=== PATIENT | female | born 1995 | race Two or more races ===

== ENCOUNTER → 2018-02-24 00:35 | Emergency (ER) | payer OTHER ==
[~2018-02-24 00:35] MED LIST: Acetaminophen TAB* 325 MG PO ONE; Lidocaine 2% VISCOUS* 15 ML UDC PO ONE; Omeprazole CAP* 20 MG PO ONE; Pantoprazole TAB (NF) 40 MG TAB PO ONE
--- NOTE | 2018-02-24 01:20 | ED ---
Throat Pain/Nasal Congestion - HPI Summary HPI Summary: Patient complains of sensation of something stuck in her throat, occasional difficulty tolerating saliva when she lies down 2 days. Patient seen at urgent care 2 days ago was told she might have esophageal spasms. Point with GI in 1 month. Has been eating soft foods for the past 2 days with no relief. Denies fever, cough, sore throat, CP, SOB, N/V/D, abdominal pain, change in urine or BM, GA. Medical history is none. Abdominal/pelvic surgical history is none - History of Current Complaint Chief Complaint: EDThroatPain Time Seen by Provider: 02/24/18 00:59 Hx Obtained From: Patient Onset/Duration: Gradual Onset Severity: Mild Associated Signs And Symptoms: Positive: FB Sensation Cough: None - Epiglottits Risk Factors Epiglottis Risk Factors: Negative - Allergies/Home Medications Allergies/Adverse Reactions: Allergies Allergy/AdvReac Type Severity Reaction Status Date / Time No Known Allergies Allergy Verified 02/24/18 00:42 PMH/Surg Hx/FS Hx/Imm Hx Endocrine/Hematology History: Denies: Hx Anticoagulant Therapy Cardiovascular History: Denies: Hx Cardiac Arrest History: Denies: Hx Dialysis Neurological History: Denies: Hx CVA Infectious Disease History: No Infectious Disease History: Denies: Traveled Outside the [place] in Last 30 Days - Social History Occupation: Student Alcohol Use: None Hx Substance Use: No Hx Tobacco Use: No Review of Systems Constitutional: Negative Eyes: Negative Positive: Other Cardiovascular: Negative Respiratory: Negative Gastrointestinal: Negative Genitourinary: Negative Musculoskeletal: Negative Skin: Negative Neurological: Negative Psychological: Normal All Other Systems Reviewed And Are Negative: Yes Physical Exam - Summary Physical Exam Summary: Speaking in full sentences. No work of breathing. No oral swelling. Tolerating oral fluids. Triage Information Reviewed: Yes Vital Signs On Initial Exam: Initial Vitals Temp Pulse Resp BP Pulse Ox 98.0 F 82 18 145/78 99 02/24/18 00:39 02/24/18 00:39 02/24/18 00:39 02/24/18 00:39 02/24/18 00:39 Vital Signs Reviewed: Yes Appearance: Positive: Well-Appearing Skin: Positive: Warm Head/Face: Positive: Normal Head/Face Inspection Eyes: Positive: Normal ENT: Positive: Normal ENT inspection Neck: Positive: Supple Respiratory/Lung Sounds: Positive: Clear to Auscultation Cardiovascular: Positive: Normal Abdomen Description: Positive: Nontender Musculoskeletal: Positive: Normal Neurological: Positive: Normal Psychiatric: Positive: Normal AVPU Assessment: Alert - Franci Coma Scale Best Eye Response: 4 - Spontaneous Best Motor Response: 6 - Obeys Commands Best Verbal Response: 5 - Oriented Coma Scale Total: 15 Diagnostics - Vital Signs Vital Signs Temp Pulse Resp BP Pulse Ox 02/24/18 00:39 98.0 F 82 18 145/78 99 - Laboratory Lab Statement: Any lab studies that have been ordered have been reviewed, and results considered in the medical decision making process. EENT Course/Dx - Course Course Of Treatment: Patient complains of sensation of something stuck in her throat, occasional difficulty tolerating saliva when she lies down 2 days. Patient seen at urgent care 2 days ago was told she might have esophageal spasms. Point with GI in 1 month. Has been eating soft foods for the past 2 days with no relief. Denies fever, cough, sore throat, CP, SOB, N/V/D, abdominal pain, change in urine or BM, GA. Medical history is none. Abdominal/ pelvic surgical history is none. Physical exam:Speaking in full sentences. No work of breathing. No oral swelling. Tolerating oral fluids. Vital signs normal. Tolerating her own saliva. No work of breathing. No oral swelling or lesions. Appointment with GI in 1 month. Trial of Rx for Protonix - Diagnoses Provider Diagnoses: Sensation of foreign body in esophagus Discharge - Sign-Out/Discharge Documenting (check all that apply): Patient Departure - Discharge Plan Condition: Stable Disposition: HOME Prescriptions: Pantoprazole Sodium [Protonix] 40 mg PO DAILY 30 Days #30 nilamkt. Patient Education Materials: Esophageal Foreign Body (ED) Referrals: No Primary Care Phys,NOPCP [Primary Care Provider] - Loco Lubin MD [Medical Doctor] - Additional Instructions: Follow-up with GI specialist. Return to the ED for any new or worsening symptoms - Billing Disposition and Condition Condition: STABLE Disposition: Home
[2018-02-24 06:46] VITALS: BP 106/77
== END | disposition home or self-care (01) ==
LOC: ED 00:35
DX: R19.8 Other specified symptoms and signs involving the digestive system and abdomen (principal)
CPT/HCPCS: 99282; A9270-GY